=== PATIENT | female | born 1980 | race Caucasian/White ===

== ENCOUNTER 2017-11-08 11:24 | Emergency (ER) | payer OTHER ==
[~2017-11-08] VITALS: Ht 175.3 cm; Wt 79.4 kg
--- OUTSIDE RECORDS SUMMARY | ~2017-11-08 | XMS | Clinical Summary ---
Demographics + + + | Address | [address] | | | [place] [address] | + + + | Home Phone | | + + + | Preferred Language | Unknown | + + + | Marital Status | | + + + | Christian Affiliation | 1041 | + + + | Race | Unknown | + + + | Ethnic Group | Unknown | + + + Author + + + | Author | [facility] | + + + | Organization | [facility] | + + + | Address | Unknown | + + + | Phone | Unavailable | + + + Support + + +---------+ + | Name | Relationship | Address | Phone | + + +---------+ + | Rakan Pearson | ECON | Unknown | | + + +---------+ + Care Team Providers + +------+ + | Care Watch Manufacturing Supervisor Name | Role | Phone | + +------+ + | Meghan Vega MD | PP | | + +------+ + Allergies + + + + + + | Active Allergy | Reactions | Severity | Noted | Comments | | | | | Date | | + + + + + + | Amoxicillin-Pot | Diarrhea, Abdominal | Low | /18/20 | | | Clavulanate | Pain | | 15 | | + + + + + + Current Medications + + + +---------+------+------+-------+ | Prescription | Sig. | Disp. | Refills | Star | End | Statu | | | | | | t | Date | s | | | | | | Date | | | + + + +---------+------+------+-------+ | Breast Pump | Pt to have double | 1 each | 0 | 12/2 | | Activ | | (neuropsychology medical consultant) | electric breast pump | | | 0/20 | | e | | | due to baby late | | | 15 | | | | | , poor latch | | | | | | | | and engorgement. | | | | | | + + + +---------+------+------+-------+ | ferrous sulfate, | Take 65 mg of iron | | | | | Activ | | 65 FE, 324 (65 FE) | by mouth daily with | | | | | e | | MG EC tablet | breakfast. 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 | + + Resolved Problems + + + + | Problem | Noted | Resolved | | | Date | Date | + + + + | Pain in finger of both hands | 09/01/19 | | | | 16 | 7 | + + + + | Pre-eclampsia in third trimester | 06/19/20 | | | | 15 | 6 | + + + + | Supervision of high risk in second trimester | 02/11/20 | | | | 15 | 6 | + + + + + + | Overview: BT: O Pos, Abs screen Neg. | + + Immunizations + + + + | Name | Dates Previously Given | Next Due | + + + + | INFLUENZA | 07/07/2015 | | | QUADRIVALENT 36+ MO | | | | PRESERV FREE | | | + + + + | Tdap | 07/07/2015 | | + + + + Family History + + +------+ + | Medical History | Relation | Name | Comments | + + +------+ + | High cholesterol | Father | | | + + +------+ + | Hypertension | Father | | | + + +------+ + | Stroke | Maternal | | | | | Aunt | | | + + +------+ + | Bladder Cancer | Maternal | | | | | Grandmoth | | | | | er | | | + + +------+ + | Hypertension | Maternal | | | | | Grandmoth | | | | | er | | | + + +------+ + | Stroke | Maternal | | | | | Uncle | | | + + +------+ + | Stroke | Maternal | | | | | Uncle | | | + + +------+ + | Leukemia | Mother | | | + + +------+ + | Heart attack | Paternal | | | | | Grandfath | | | | | er | | | + + +------+ + | Hypertension | Paternal | | | | | Grandmoth | | | | | er | | | + + +------+ + | Factor V Leiden | Sister | | | | deficiency | | | | + + +------+ + + +------+ + + | Relation | Name | Status | Comments | + +------+ + + | Father | | Alive | | + +------+ + + | Maternal Aunt | | | | + +------+ + + | Maternal Grandmother | | | | + +------+ + + | Maternal Uncle | | | | + +------+ + + | Maternal Uncle | | | | + +------+ + + | Mother | | | | + +------+ + + | Paternal Grandfather | | | | + +------+ + + | Paternal Grandmother | | | | + +------+ + + | Sister | | | | + +------+ + + Social History + +-------+ +--------+------+ | Tobacco Use | Types | Packs/Day | Years | Date | | | | | Used | | + +-------+ +--------+------+ | Never Smoker | | | | | + +-------+ +--------+------+ + +---+---+---+ | Smokeless Tobacco: | | | | | Never Used | | | | + +---+---+---+ + + +---------+ + | Alcohol Use | Drinks/We | oz/Week | Comments | | | ek | | | + + +---------+ + | No | | | | + + +---------+ + + + + | Sex Assigned at | Date Recorded | | | | + + + | Not on file | | + + + Last Filed Vital Signs + + + + | Vital Sign | Reading | Time Taken | + + + + | Blood Pressure | 114/70 | 10/25/2016 3:51 PM PDT | + + + + | Pulse | 65 | 09/30/2016 7:01 PM PDT | + + + + | Temperature | 36.7 C (98 F) | 09/30/2016 7:01 PM PDT | + + + + | Respiratory Rate | 14 | 09/30/2016 7:01 PM PDT | + + + + | Oxygen Saturation | 100% | 09/30/2016 7:01 PM PDT | + + + + | Inhaled Oxygen | - | - | | Concentration | | | + + + + | Weight | 83 kg (183 lb) | 10/25/2016 3:51 PM PDT | + + + + | Height | 172.7 cm (5' 8") | 10/25/2016 3:51 PM PDT | + + + + | Body Mass Index | 27.83 | 10/25/2016 3:51 PM PDT | + + + + Plan of Treatment + + + + + | Health Maintenance | Due Date | Last Done | Comments | + + + + + | Cervical Cancer | 12/09/200 | | | | Screening (Pap) | 3 | | | + + + + + | Vaccine: Influenza | | 07/07/2015 | | | (Season Ended) | 8 | | | + + + + + | Vaccine: | | 07/07/2015 | | | Dtap/Tdap/Td (2 - | 5 | | | | Td) | | | | + + + + + Results Not on filefrom Last 3 Months Insurance + +--------+ +------+-------+ + | Payer | Benefi | Subscriber | Type | Phone | Address | | | t Plan | ID | | | | | | / | | | | | | | Group | | | | | + +--------+ +------+-------+ + | JOHN - [employer] - | [place]U | xxxxxxxxx | | | [place] [address] | | [place] | [place] | | | | [place] | | | [place] | | | | [phone] | | | [place] | | | | | | | [place] | | | | | + +--------+ +------+-------+ + + +--------+ +--------+ + + | Guarantor Name | Accoun | Relation to | Date | Phone | Billing Address | | | t Type | Patient | of | | | | | | | | | | + +--------+ +--------+ + + | HUI PEARSON | Person | Self | [birth year] | Home: | [address] | | | al/Fam | | 1979 | [phone] | [place] [address] | | | jessenia | | | [phone] | | + +--------+ +--------+ + +
--- OUTSIDE RECORDS SUMMARY | ~2017-11-08 | XMS | Clinical Summary ---
Demographics + + + | Address | [address] | | | [place] [address] | + + + | Home Phone | | + + + | Preferred Language | Unknown | + + + | Marital Status | | + + + | Confucianist Affiliation | 1041 | + + + | Race | Unknown | + + + | Ethnic Group | Unknown | + + + Author + + + | Author | [facility] | | | and [place] | + + + | Organization | [facility] | | | and [place] | + + + | Address | Unknown | + + + | Phone | Unavailable | + + + Support + + +---------+ + | Name | Relationship | Address | Phone | + + +---------+ + | Rakan Pearson | ECON | Unknown | | + + +---------+ + Care Team Providers + +------+ + | Care Program Facilitator Name | Role | Phone | + +------+ + | Bryon Arias MD | PP | | + +------+ + Allergies + + + + + + | Active Allergy | Reactions | Severity | Noted | Comments | | | | | Date | | + + + + + + | Amoxicillin-Pot | Nausea And Vomiting, | Low | 07/04/20 | | | Clavulanate | Diarrhea | | 15 | | + + + + + + | Hydrocodone-Acetamin | Nausea Only, Nausea | | 06/08/20 | | | ophen | And Vomiting | | 11 | | + + + + + + | Minocycline | Hives | | 07/16/20 | | | | | | 17 | | + + + + + + Current Medications + + +---------+---------+------+------+-------+ | Prescription | Sig. | Disp. | Refills | Star | End | Statu | | | | | | t | Date | s | | | | | | Date | | | + + +---------+---------+------+------+-------+ | LORazepam (ATIVAN) | Take 0.5 mg by mouth | | | | | Activ | | 0.5 mg tablet | every 6 hours as | | | | | e | | | needed for Anxiety | | | | | | | | or Insomnia. | | | | | | + + +---------+---------+------+------+-------+ | benzonatate | Take 1 capsule by | 30 | 0 | 12/2 | | Activ | | (TESSALON) 100 mg | mouth 3 times daily | capsule | | 9/20 | | e | | capsuleIndications: | as needed for Cough. | | | 17 | | | | Acute non-recurrent | | | | | | | | maxillary sinusitis | | | | | | | + + +---------+---------+------+------+-------+ Active Problems No known active problems Social History + +-------+ +--------+------+ | Tobacco [...] | | + + +---------+ + | Yes | 1 | 0.6 | | | | Glasses | | | | | of wine | | | + + +---------+ + + + + | Sex Assigned at | Date Recorded | | | | + + + | Not on file | | + + + Last Filed Vital Signs + + + + | Vital Sign | Reading | Time Taken | + + + + | Blood Pressure | 136/60 | 07/15/2017932 PST | + + + + | Pulse | 94 | 07/15/2017932 PST | + + + + | Temperature | 36.2 C (97.2 F) | 07/15/2017932 PST | + + + + | Respiratory Rate | 18 | 07/15/2017932 PST | + + + + | Oxygen Saturation | 98% | 07/15/2017932 PST | + + + + | Inhaled Oxygen | - | - | | Concentration | | | + + + + | Weight | 83.9 kg (185 lb) | 05/13/20176 PDT | + + + + | Height | 172.7 cm (5' 8") | 05/13/20176 PDT | + + + + | Body Mass Index | 28.13 | 05/13/20171025 PDT | + + + + Plan of Treatment + + + + + | Health Maintenance | Due Date | Last Done | Comments | + + + + + | Vaccine: Influenza | | 07/07/2015 | | | (Season Ended) | 8 | | | + + + + + | CERVICAL CANCER | | 02/27/2016 | | | SCREENING (PAP EVERY | 9 | | | | 3 YEARS 21-64 ) | | | | + + + + + | Vaccine: | | 07/07/2015 | | | Dtap/Tdap/Td (2 - | 5 | | | | Td) | | | | + + + + + Results Not on filefrom Last 3 Months Insurance +---------+--------+ +--------+ +---------+ | Payer | Benefi | Subscriber | Type | Phone | Address | | | t Plan | ID | | | | | | / | | | | | | | Group | | | | | +---------+--------+ +--------+ +---------+ | | [employer] | [phone] | [place] | [phone] | | | [address] | | itsurendra | [phone] | | | | HNFS | | | | | +---------+--------+ +--------+ +---------+ + +--------+ +--------+ + + | Guarantor Name | Accoun | Relation to | Date | Phone | Billing Address | | | t Type | Patient | of | | | | | | | | | | + +--------+ +--------+ + + | HUI PEARSON | Person | Self | [birth year] | Home: | [address] | | | al/Bryon | | 1979 | [phone] | [place] [address] | | | j[place]enia | | | [phone] | | + +--------+ +--------+ + +
--- OUTSIDE RECORDS SUMMARY | ~2017-11-08 | XMS | Clinical Summary ---
Demographics + + + | Address | [address] | | | [place] [address] | + + + | Home Phone | | + + + | Preferred Language | Unknown | + + + | Marital Status | | + + + | Tenriism Affiliation | 1041 | + + + | Race | Unknown | + + + | Ethnic Group | Unknown | + + + Author + + + | Author | [facility] | | | and [place] | + + + | Organization | [facility] | | [...] Team Providers + +------+ + | Care Placement Director Name | Role | Phone | + [...] | Self | [birth year] | Home: | [address] | | | al/Bryon | | 1979 | [phone] | [place] [address] | | | jessenia | | | [phone] | | + +--------+ +--------+ + +
--- OUTSIDE RECORDS SUMMARY | ~2017-11-08 | XMS | Clinical Summary ---
Demographics + + + | Address | [address] [place] [address] Rd | | | [place] [address] | + + + | Home Phone | | + + + | Preferred Language | Unknown | + + + | Marital Status | | + + + | Yarsani Affiliation | CAT | + + + | Race | White | + + + | Ethnic Group | Not or | + + + Author + + + | Author | [facility] | + + + | Organization | [facility] | + + + | Address | Unknown | + + + | Phone | Unavailable | + + + Support + + +---------+ + | Name | Relationship | Address | Phone | + + +---------+ + | Rakan Rivera | ECON | Unknown | | + + +---------+ + Care Team Providers + +------+ + | Care Continuum Of Care Manager Name | Role | Phone | + +------+ + | Meghan Vega MD | PP | | + +------+ + Source Comments PATRICIA is fully live on both [facility] Ambulatory and [facility] InPatient.[facility] Allergies + + + + + + | Active Allergy | Reactions | Severity | Noted | Comments | | | | | Date | | + + + + + + | Hydrocodone-Acetamin | Nausea, Nausea and | | 06/08/20 | | | ophen | Vomiting | | 11 | | + + + + + + Current Medications + + +-------+---------+------+------+-------+ | Prescription | Sig. | Disp. | Refills | Star | End | Statu | | | | | | t | Date | s | | | | | | Date | | | + + +-------+---------+------+------+-------+ | ethinyl | Apply 1 Patch to | | | | | Activ | | estradiol-norelgestr | skin every seven | | | | | e | | om (ORTHO EVRA) | days. A new patch is | | | | | | | 150-20 mcg/24 hr | applied each week | | | | | | | Transdermal Patch | for 3 weeks (21 | | | | | | | Weekly | days). Week 4 is | | | | | | | | patch-free. Every | | | | | | | | new patch should be | | | | | | | | applied on the same | | | | | | | | day of the week. | | | | | | + + +-------+---------+------+------+-------+ Active Problems + + + | Problem | Noted Date | + + + | Nasal obstruction | 03/04/2011 | + + + + + | Overview: S/p injury x 2, left sided, plan functional SRP | + + + + + | Nasal septal deviation | 03/04/2011 | + + + | Acquired nasal deformity | 03/04/2011 | + + + | Hypertrophy of inferior nasal turbinate | 03/04/2011 | + + + | Personal history of sinusitis | 03/04/2011 | + + + | Nasal trauma | 03/04/2011 | + + + Family History + + +------+ + | Medical History | Relation | Name | Comments | + + +------+ + | Cancer | | | Leukemia | + + +------+ + + +------+--------+ + | Relation | Name | Status | Comments | + +------+--------+ + Social History + +-------+ +--------+------+ | Tobacco Use | Types | Packs/Day | Years | Date | | | | | Used | | + +-------+ +--------+------+ | Never Smoker | | | | | + +-------+ +--------+------+ + + +---------+ + | Alcohol Use | Drinks/We | oz/Week | Comments | | | ek | | | + + +---------+ + | Yes | 1 | 0.5 | | | | Standard | | | | | drinks or | | | | | | | | | | equivalen | | | | | t | | | + + +---------+ + + + + | Sex Assigned at | Date Recorded | | | | + + + | Not on file | | + + + Last Filed Vital Signs + + + + | Vital Sign | Reading | Time Taken | + + + + | Blood Pressure | 134/71 | 06/09/2011 12:20 PM PST | + + + + | Pulse | 77 | 06/09/2011 12:20 PM PST | + + + + | Temperature | 37.4 C (99.3 F) | 06/09/2011 12:20 PM PST | + + + + | Respiratory Rate | 14 | 06/09/2011 12:20 PM PST | + + + + | Oxygen Saturation | 98% | 06/09/2011 12:20 PM PST | + + + + | Inhaled Oxygen | - | - | | Concentration | | | + + + + | Weight | 72.7 kg (160 lb 4.4 | 06/09/2011 6:00 AM PST | | | oz) | | + + + + | Height | 175 cm (5' 8.9") | 06/09/2011 6:00 AM PST | + + + + | Body Mass Index | 23.74 | 06/09/2011 6:00 AM PST | + + + + Plan of Treatment + + + + + | Health Maintenance | Due Date | Last Done | Comments | + + + + + | INFLUENZA VACCINE | | | | | (FLU SHOT) | 8 | | | + + + + + Results Not on filefrom Last 3 Months
--- OUTSIDE RECORDS SUMMARY | ~2017-11-08 | XMS | Clinical Summary ---
Demographics + + + | Address | [address] | | | [place] [address] | + + + | Home Phone | | + + + | Preferred Language | Unknown | + + + | Marital Status | | + + + | Denominational Affiliation | 1041 | + + + | Race | Unknown | + + + | Ethnic Group | Unknown | + + + Author + + + | Author | [facility] | + + + | Organization | [facility] | + + + | Address | Unknown | + + + | Phone | Unavailable | + + + Support + + +---------+ + | Name | Relationship | Address | Phone | + + +---------+ + | Rakan Pearson | ECON | Unknown | | + + +---------+ + Care Team Providers + +------+ + | Care Marine Consultant Name | Role | Phone | + [...] | 12/2 | | Activ | | (medical support assistant) | electric breast pump | | | [...] | [phone] | | | [place] [address] | | [place] | [place] | | | | [place] | | | [place] | | | | [address] | | | [place] | | | [...] | Self | [birth year] | Home: | [address] | | | al/Fam | | 1979 | [phone] | [place] [address] | | | jessenia | | | [phone] | | + +--------+ +--------+ + +
--- OUTSIDE RECORDS SUMMARY | ~2017-11-08 | XMS | Clinical Summary ---
Demographics + + + | Address | [address] [place] [address] Rd | | | [place] [address] | + + + | Home Phone | | + + + | Preferred Language | Unknown | + + + | Marital Status | | + + + | Voodoo Affiliation | CAT | + + + [...] Team Providers + +------+ + | Care Sandblasting Supervisor Name | Role | Phone | + +------+ + | Meghan Vega MD | PP | | + +------+ + Source Comments PATRICIA is fully live on both [facility] Ambulatory and [facility] InPatient.[facility] Allergies + + + + + + [...]
[2017-11-08] MEDS ORDERED: ERY-TAB333 MG PO (11:37)
--- NOTE | 2017-11-09 07:34 | EKG ---
[facility] [address] [place], [place] [address] Signed Normal sinus rhythm Rightward axis Borderline ECG No previous ECGs available Confirmed by CHELE MARIE MD ([id number]) on 11/09/2017 7:34:27 AM Electronically Signed By: CHELE MARIE MD 11/09/17 0734 PATIENT NAME: HUI PEARSON Electrocardiogram DATE OF : 84 PHYSICIAN: CHELE MARIE MD REPORT #: [id number] REPORT IS CONFIDENTIAL AND NOT TO BE RELEASED WITHOUT AUTHORIZATION
== END 2017-11-08 13:06 | disposition home or self-care (01) ==
LOC: ED 11:24
DX: R07.9 Chest pain, unspecified (principal); Z88.2 Allergy status to sulfonamides; Z79.1 Long term (current) use of non-steroidal anti-inflammatories (NSAID)
CPT/HCPCS: 36415; 71046; 80053; 84484; 85025; 93005; 93010; 99284